=== PATIENT | female | born 1980 | race Asian ===

== ENCOUNTER 2023-12-23 12:21 | Emergency (ER) | payer BC ==
[2023-12-23 12:29] VITALS: BP 157/91; PULSE 81; RESP 18; TEMP 98.2; BMI 30.5
[2023-12-23] MEDS ORDERED: DIPHTH,PERTUSS(ACELL),TET 0.5 ML DISP.SYRIN IM ONE (13:42)
[2023-12-23] MEDS: DIPHTH,PERTUSS(ACELL),TET 0.5 ML DISP.SYRIN IM ONE (13:43)
== END 2023-12-23 14:25 | disposition home or self-care (01) ==
LOC: JERFT 12:21
PROC: 0XQRXZZ Repair Left Middle Finger, External Approach (ICD-10-PCS; principal; 2023-12-23)
PROC: 3E0234Z Introduction of Serum, Toxoid and Vaccine into Muscle, Percutaneous Approach (ICD-10-PCS; 2023-12-23)
DX: S61.211A Laceration without foreign body of left index finger without damage to nail, initial encounter (principal); S61.213A Laceration without foreign body of left middle finger without damage to nail, initial encounter; W26.8XXA Contact with other sharp object(s), not elsewhere classified, initial encounter; Z23 Encounter for immunization
CPT/HCPCS: 90715; 99284-25

== ENCOUNTER 2024-01-02 11:43 | Emergency (ER) | payer BC ==
[2024-01-02 11:48] VITALS: BP 142/87; PULSE 86; RESP 20; TEMP 98.7; BMI 27.3
== END 2024-01-02 12:46 | disposition home or self-care (01) ==
LOC: JERFT 11:43
DX: Z48.02 Encounter for removal of sutures (principal)
CPT/HCPCS: 99281-25